=== PATIENT | female | born 1990 | race Caucasian/White ===

== ENCOUNTER 2024-09-29 10:46 | Outpatient (AMB) | payer OTHER, SELFPAY ==
--- NOTE | 2024-09-29 10:49 | A.OFFPC_ITS ---
Vital Signs 09/29/24 10:54 09/29/24 11:19 09/29/24 11:23 Height 5 ft 6 in Weight 178 lb BMI 28.7 BP 142/78 H 128/76 Blood Pressure Location Rt brachial Rt brachial Position Sitting Sitting Respiration 13 Pulse 103 H 105 H Pulse Source Pulse Oximeter Auscultation Temp 96.9 F Temp Source Oral Pulse Oximetry (%) 99 Oxygen Delivery Method Room Air Intake Visit Reasons: TYPIST // Requesting a PE Intake Note: New patient to establish care and cpe. Twister Doffer Required: No Allergies No Known Allergies Allergy (Verified 09/29/24 11:10) Medication List - Last Reconciled 09/29/24 by GALILEA Carranza No Known Home Meds Tobacco use date assessed: 09/29/24 Dental Screening Dental Screen Date: 09/29/24 Did you have a dental visit in the last 12 months?: Yes Did you have a dental problem in the last 6 months where you did not have access to dental care?: No Was dental information given to patient?: Patient has dentist HPI HPI Comments History of Present Illness Details ARYAN 34 y/o F with no significant medical hx. 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 Some days worse than others. No pattern. Sx are persistent, does not ever go away. But can get worse. Activity and food do not seem to change her sx. No alleviating factors. She is having palpitations. Every now and then. Feels like breathing is good. Does not smoke Denies chance of Denies surgery or travel prior to onset. Not taking any meds. Denies asthma, acid reflux, cough, n/v. Review of Systems - Cardiovascular: Reports palpitations, denies chest pain. - Gastrointestinal: Denies nausea and vo miting. - Respiratory: Denies asthma symptoms. - Psychological: Denies depression or an xiety. - Musculoskeletal: Denies back pain, den ies leg swelling. Physical Exam General: Well developed, well nourished, in no acute distress. Appears stated age. Head: Normocephalic, atraumatic. Eyes: Pupils are equal, round and reactive to light and accommodation. Lungs: Clear to auscultation bilaterally. No rales, rhonchi or wheeze noted. Good air flow in all salvador. Heart: Tachycardia, Regular rhythm. No murmurs, click, rubs or gallops are noted. EKG done. Musculoskeletal: Joints are nontender, without swelling, redness, or effusions. Pulses: Peripheral pulses are equal and palpable bilaterally. Extremities: No clubbing, cyanosis nor edema is noted. Psych: Mood and affect appropriate. Depression screening negative. Diagnostic results EKG done Discussion Notes We discussed performing an ECG, which showed a fast heart rate, and the benefits of further cardiac evaluation, including possible stress testing and lab work to rule out thyroid disease or other abnormalities. The timeline for test results was mentioned, and the need for further examinations and follow-up was agreed upon. I advised the patient to use our patient portal for lab results, with a follow-up planned in four weeks to review all findings, start new medications if necessary, and consider pressure management. I made sure the patient understood the testing procedures and the rationale behind them. Return precautions and further guidance on contact for results were addressed. Assessment and Plan 1. Palpitations/Chest pressure/Tachycard ia - Labs, ekg, stress test, CXR RTO 4 weeks to discuss results, sooner PRN Patient Instructions - Please follow up through the patient p ortal to check lab results. - Expect contact regarding the stress te st schedule, anticipated in three weeks. - Avoid stress and try relaxation techni ques for potential anxiety-related symptoms. - Return to the clinic if symptoms worse n or new symptoms arise. Consent Patient was informed and verbally consented to the use of an ambient scribe for clinic note documentation during this visit. Total time spent caring for the patient today was 45 minutes. This includes time spent before the visit reviewing the chart, time spent during the visit, and time spent after the visit on documentation, reviewing laboratory results, diagnostic imaging, medications, performing a medically necessary evaluation, counseling on diagnoses, care coordination, ordering appropriate tests, ordering appropriate medications, review of tests performed by other providers, reporting test results with the patient, communication with other healthcare providers. 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 1. Little interest or pleasure in doing things: not at all 2. Feeling down, depressed, or hopeless: not at all 3. Trouble falling or staying asleep, or sleeping too much: not at all 4. Feeling tired or having little energy: not at all 5. Poor appetite or overeating: not at all 6. Feeling bad about yourself - or that you are a failure or have let yourself or your family down: not at all 7. Trouble concentrating on things, such as reading the newspaper or watching television: not at all 8. Moving or speaking so slowly that other people could have noticed. Or the opposite - being so fidgety or restless that you have been moving around a lot more than usual: not at all 9. Thoughts that you would be better off or of hurting yourself in some way: not at all Total score: 0 Depression Screening Interpretation: Negative Depression Screening Done: Yes 57234 - PHQ-9 Billing: Yes Source: Developed by Drs. Adolfo Shaw, Elizabeth Torres, Josue Fuentes and colleagues, with an educational joshua from [employer]. Thrive Questionnaire Date Thrive assessed: 09/29/24 I am a: Patient What is your living situation today?: I have a steady place to live Within the past 12 months, did the food you bought not last and you didn't have the money to get more?: Never true Within the past 12 months, did you worry whether your food would run out before you got money to buy more?: Never true Do you have trouble paying for medicines?: No Do you have trouble getting transportation to medical appointments?: No Do you have trouble paying your heating and electricity bill?: No Do you have trouble taking care of your child, family member or friend?: No Do you have trouble with day-to-day activities such as bathing, preparing meals, shopping, managing finances, etc.?: No Are you currently unemployed and looking for a job?: No Are you interested in more education?: No Please select the resources that you would like help with: None Currently or been in a relationship where the following occur: No concerns reported THRIVE Score: 0 AUDIT C Alcohol Use Questionnaire (AUDIT-C) 1. How often do you have a drink containing alcohol?: Monthly or less 2. How many drinks containing alcohol do you have on a typical day when you are drinking?: 3 or 4 3. How often do you have six or more drinks on one occasion?: Never Total Score: 2 Score Reviewed/Action Taken: Yes LOS-7 AMB Questionnaire LOS-7 Date LOS - 7 assessed: 09/29/24 Feeling nervous, anxious, or on edge: 0 = Not at all Not being able to stop or control worryin = Not at all Worrying too much about different things: 1 = Several days Trouble relaxin = Not at all Being so restless that it is hard to sit still: 0 = Not at all Becoming easily annoyed or irritable: 0 = Not at all Feeling afraid as if something awful might happen: 0 = Not at all Total LOS-7 score (0-4 normal; 5-9 mild; 10-14 moderate; 15-21 severe): 1 Source: Developed by Drs. Adolfo Shaw, Elizabeth Torres, Josue Fuentes and colleagues, with an educational joshua from [employer]. LOS-7 Assessment Billing LOS-7 Assessment Tool: LOS-7 Assessment 92993 Physical exam (Primary Care) Vital Signs: Last Vital Signs Temp 96.9 F 09/29/24 10:54 Pulse 105 H 09/29/24 11:23 Resp 13 09/29/24 10:54 BP 128/76 09/29/24 11:19 Pulse Ox 99 09/29/24 10:54 Oxygen Delivery Method Room Air 09/29/24 10:54 BMI result Body Mass Index 28.7 Tobacco/Smoking Status: Tobacco use Status Tobacco use date assessed 09/29/24 09/29/24 10:57 Patient Tobacco Use Status Never used Tobacco 09/29/24 10:57 e-Cigarette/Vaping Use Never Used 09/29/24 10:57 PHQ-9: PHQ-9 Score PHQ-9: Total score 0 09/29/24 11:19 Depression Screening Interpretation: Negative Thrive Assessment: Date of Thrive Assessment Date Thrive assessed 09/29/24 09/29/24 10:57 Currently or been in a relationship where the following occur: No concerns reported Office Procedures EKG 34285-Aokucmjkadkjayojt, Complete Coding Level of Care Code New Pt Level 4 (13644) Complex EM visit Add On G2211 Diagnoses Encounter to establish care Z76.89 Palpitations R00.2 Chest pressure R07.89 CPT Codes EKG - CPT: 15784-Najbuffvqknelfasi, Complete ([id number]) Additional Codes LOS-7 Assessment Billing - LOS-7 Assessment Tool: LOS-7 Assessment 17414 ([id number]) PHQ-9 - 43370 - PHQ-9 Billing: Yes ([id number]) Assessment & Plan Assessment & Plan (1) Encounter to establish care: Code(s): Z76.89 - Persons encountering health services in other specified circumstances (2) Palpitations: Code(s): R00.2 - Palpitations Category: Medical (3) Chest pressure: Code(s): R07.89 - Other chest pain Category: Medical Plan . Orders: Orders Complete Blood Count no Diff Today R00.2 - Palpitations IRON PROFILE Today R00.2 - Palpitations Lipid Panel Today R00.2 - Palpitations Comprehensive Met. Panel Today R00.2 - Palpitations Ferritin Today R00.2 - Palpitations Hemoglobin A1c Today R00.2 - Palpitations TSH reflex Free T4 Today R00.2 - Palpitations Vitamin B12 and Folate Today R00.2 - Palpitations Magnesium Today R00.2 - Palpitations Phosphorus Today R00.2 - Palpitations XR chest 2V Today R00.2 - Palpitations CA stress test Today R00.2 - Palpitations, R07.89 - Other chest pain NM cardiolite stress test Today R00.2 - Palpitations, R07.89 - Other chest pain Erythrocyte Sedimentation Rate Today R00.2 - Palpitations, R07.89 - Other chest pain CRP High Sensitivity Today R00.2 - Palpitations, R07.89 - Other chest pain Patient Instructions: Walk-In Care (Urgent Care): We Make it Easy Walk-in for urgent medical issues such as: ? Seasonal Allergies ? Insect Bites ? Cough ? Diarrhea ? Acute Asthma Attacks ? Back, Knee or Joint Pain ? Ear Infection ? Fever without a Rash ? Headaches ? Nausea ? [place] [facility], Rash or Skin Irritation ? Sore Throat ? Sports Physicals ? Vomiting Most insurances are accepted. Patients do not need to be part of the [facility] to seek care at the walk-in clinic. Locations [facility] [place] [address] ? [phone] [facility] Walk-In Care in [place] provides services to ages 18 and over. Open Friday-Friday: 8 a.m. to 5 p.m. and Friday: 9 a.m. to 3 p.m.* *Hours may vary due to staffing availability. To confirm Walk-In Care hours in [place], please call [phone]. [address] [place] [address] ? [phone] [facility] Walk-In Care in [place] provides services to ages 12 and over. Open Friday-Friday: 8 a.m. to 5 p.m. Hours may vary due to staffing availability. To confirm Walk-In Care hours in [place], please call [phone]. LABORATORY SERVICES: [facility] Lab ? Primary Location [address] [place] [address] Friday through Friday 6:00 AM ? 5:00 PM Friday 7:00 AM ? 11:00 AM* [phone] [facility] Lab is centrally located near the front entrance of the [facility] for easy outpatient access. Convenient parking is provided for outpatients. *Hours may vary due to staffing availability. To confirm Laboratory hours for any location, please call [phone]. Offsite Location For your convenience, we offer offsite laboratory draw stations at the following locations: [address] [facility], [place] ? [facility] [address] [facility], [address], [place] Friday through Friday 7:30 AM ? 1:00 PM* [phone] *Hours may vary due to staffing availability. To confirm Laboratory hours for any location, please call [phone]. [place] ? [facility] [address] [facility] Friday through Friday 6:00 AM ? 3:30 PM* Friday 6:30 AM ? 3 PM* [phone] *Hours may vary due to staffing availability. To confirm Laboratory hours for any location, please call [phone] [place] [address] Friday through Friday 7:30 AM ? 4:00 PM* [phone] *Hours may vary due to staffing availability. To confirm Laboratory hours for any location, please call [phone] [place] [address] Friday through 9:00 AM ? 4:00 PM* *Hours may vary due to staffing availability. To confirm Laboratory hours for any location, please call [phone]. Appointments are not necessary. Walk-ins are welcome. Like all the departments throughout the [facility], our Lab undergoes frequent reviews to ensure the quality and accuracy of test results, and our staff takes special pride in its status as a nationally accredited facility. Patient Portal: ONE PATIENT. ONE RECORD. BETTER CARE. [facility] has a fully integrated, cutting- edge mobile electronic health information system that has revolutionized the way we care for our patients and manage our organization. This system improves communication and coordination enabling us to provide safe, higher-quality care, and an overall positive experience for staff and patients. Our first priority, as always, is to deliver the highest quality care possible. The system is running in the background supporting that priority. This portal is for all [facility] services and practices. If you are experiencing any technical difficulties with enrolling or logging into the Patient Portal please complete the [facility] Patient Portal Technical Support Form. [facility] now offers a new secure on-line interactive tool for patients to review their health information ? ?Patient Portal. This interactive web portal will enable patients and their families to take an active role in their care by providing easy, secure access to their health information via the internet. The Patient Portal provides patients with instant access to their health information, including laboratory results, medications, allergies, demographic information, visit history, and more. In addition to managing their own care, parents and health care proxies with authorized consent will appreciate the ability to access the records of those individuals for whom they provide care. Please note: if you wish to gain access (Proxy) to another patient?s portal, you will be required to come to the Medical Records Department in person at [facility]. Both the patient giving proxy access and the proxy will need to provide photo identification and complete the appropriate authorization. The Patient Portal also allows track their appointments online. The [facility] Patient Portal also saves patients time by allowing them to submit updates to their demographic and contact information prior to their visits. Portal email notifications will also alert patients to any new activity on their portal, such as test results and new appointments. In order to initially enroll in the [facility] Patient Portal, you will need to enter some required information including the following: * your [facility] Medical Record number * your personal home email address * name * date of Please note: In order to enroll in the [facility] Patient Portal, we need to have your email address on file in your electronic medical record. ?The email address needs to be specific for one person (yourself) in order for your Portal enrollment to be successful. ?You can update your email address in person with our Registration staff when you are registering for a hospital visit. ?Otherwise, you will need to come to the Health Information Management (Medical Records) Department at [facility]. ?We are open from Friday ? Friday from 7:30 a.m. ? 4:30 p.m. ?You will be required to present a photo id. Once you have successfully enrolled in the Patient Portal, you will receive a one-time user id and password for the Portal, sent to your email address. ?This will allow you to log into the Patient Portal within 99 hrs and reset your own logon id and password, and define personal security questions. ?Once your permanent login and password have been set, you can log into the [facility] Patient Portal at any time via the blue button above or from the Portal Logon button on any page of the [facility] website. [facility] encourage all of our patients to enroll in Patient Portal as it presents a valuable opportunity for patients and their families to actively participate in their care and stay healthy Welcome to [facility]. ?We look forward to working with you.
[2024-09-29 10:54] VITALS: BP 142/78; PULSE 103; RESP 13; TEMP 36.1; O2SAT 99; BMI 28.7
[2024-09-29 11:19] VITALS: BP 128/76
[2024-09-29 11:23] VITALS: PULSE 105
--- OUTSIDE RECORDS SUMMARY | 2024-09-29 12:23 | XMS_ITS | Clinical Summary ---
Author Organization [facility] ity Address [address] [place] [address] Care Team Providers Care Well Head Pumper Name Role Phone Unavailable Primary Care Provider Unavailabl e Social History Tobacco Use Types Packs/Day Years Used Date Smoking Tobacco: Never Assessed Comments Unknown Sex and Gender Information Value Date Recorded Sex Assigned at Not on file Legal Sex Female 9:19 PM EST Gender Identity Not on file Sexual Orientation Not on file Plan of Treatment Health Maintenance Due Date Last Done Comments DTaP,Tdap,and Td Vaccines (1 - Tdap) 2009 Hepatitis B Vaccines (1 of 3 - 19+ 3-dose series) 2009 Cervical Cancer Screening: P ap Smear 07/25/2011 COVID-19 Vaccine ( - 2023-2 5 season) 2023 Influenza Vaccine (Season Ended) 2024 HIB Vaccines Aged Out No longer eligi ble based on patient's age to complete this topic HPV Vaccines Aged Out No longer eligi ble based on patient's age to complete this topic Hepatitis A Vaccines Aged Out No long er eligible based on patient's age to complete this topic IPV Vaccines Aged Out No longer eligi ble based on patient's age to complete this topic MMR Vaccines Aged Out No longer eligi ble based on patient's age to complete this topic Meningococcal ACWY Vaccine Aged Out N o longer eligible based on patient's age to complete this topic Meningococcal B Vaccine Aged Out No l onger eligible based on patient's age to complete this topic Pneumococcal Vaccine: Pediat rics (0 to 5 Years) and At-Risk Patients (6 to 64 Years) Aged Out No longer eligible b ased on patient's age to complete this topic RSV Immunization Patients Un darren 20 months Aged Out No longer eligible b ased on patient's age to complete this topic Varicella Vaccines Aged Out No longer eligible based on patient's age to complete this topic
== END 2024-09-29 11:50 | disposition home or self-care (01) ==
LOC: HO.HMCFM 10:47
PROVIDERS: PCP Nurse Practitioner Family; Visit Provider Nurse Practitioner Family
DX: Z76.89 Persons encountering health services in other specified circumstances (principal); R00.2 Palpitations; R07.89 Other chest pain

== ENCOUNTER 2024-09-29 11:42 | Outpatient (REF) | payer OTHER, SELFPAY ==
[2024-09-29 14:29] LABS: Hematocrit 40.3 % (37.0-47.0); Mean Corpuscular HGB Conc 32.3 g/dl (31.0-35.0); Mean Corpuscular Hemoglobin 27.4 pg (27.0-33.0); Mean Platelet Volume 10.1 fL (9.4-12.3); Platelet Count 132 X10*3/uL (160-400); Red Blood Count 4.74 X10*6/uL (4.20-5.50); Red Cell Distribution Width 12.4 % (11.0-16.0)
[2024-09-29 14:33] LABS: Estimated Average Glucose 100 mg/dL; Hemoglobin A1c % 5.1 % (<6.0); Total Hemoglobin (HGBA1C) 3521.2077 umol/L
[2024-09-29 14:47] LABS: Alanine Aminotransferase < 6 U/L (0-31); Albumin Level 4.5 g/dL (3.5-5.0); Alkaline Phosphatase 56 U/L (39-117); Anion Gap 14 (12-20); Aspartate Amino Transferase 19 U/L (5-31); Bilirubin Total 0.3 mg/dL (0.0-1.0); Blood Urea Nitrogen 13 mg/dL (9-16); Calcium 9.9 mg/dL (8.4-10.2); Carbon Dioxide 24 mmol/L (22-29); Chloride 107 mmol/L (96-108); Cholesterol 190 mg/dL (<200); Estimated Glomerular Filt Rate > 60; Glucose Random 110 mg/dL (60-115); HDL Cholesterol 55 mg/dL (>40); Iron 73 mcg/dL (30-160); LDL Cholesterol Calculated 121 mg/dL (<100); Magnesium 1.9 mg/dL (1.6-2.6); Percent Iron Saturation 27 % (15-50); Phosphorus 3.1 mg/dL (2.7-4.5); Potassium 3.6 mmol/L (3.3-5.1); Sodium 141 mmol/L (135-145); Total Iron Binding Capacity 269 mcg/dL (228-428); Total Protein 7.3 g/dL (6.5-8.0); Triglycerides 72 mg/dL (<150); Unsaturated Iron Binding 196 ug/dL
[2024-09-29 15:04] LABS: Ferritin 38 ng/mL (10-122); TSH reflex Free T4 2.13 uIU/mL (0.32-4.0)
[2024-09-29 15:07] LABS: Erythrocyte Sedimentation Rate 12 MM/HR (0-20)
[2024-09-29 15:10] LABS: Vitamin B12 610 pg/mL (200-900)
[2024-09-30 07:43] LABS: CRP High Sensitivity 7.4 mg/L
== END 2024-09-29 11:43 | disposition home or self-care (01) ==
LOC: HO.WFDLDS 11:42
PROVIDERS: Visit Provider Nurse Practitioner Family
DX: Z76.89 Persons encountering health services in other specified circumstances (principal); R00.2 Palpitations; R07.89 Other chest pain; Z13.1 Encounter for screening for diabetes mellitus
CPT/HCPCS: 36415; 80053; 80061; 82607; 82728; 82746; 83036; 83540; 83735; 84100; 84443; 85027; 85652; 86141; 93005; 96127

== ENCOUNTER 2024-10-01 07:46 | Outpatient (REF) | payer OTHER, SELFPAY ==
--- NOTE | ~2024-10-01 | XR_ITS ---
EXAMINATION: XR CHEST CLINICAL INFORMATION: R00.2 - Palpitations COMPARISON: None available. TECHNIQUE: 2 views of the chest were obtained. FINDINGS: The cardiac, hilar, and mediastinal contours are normal. The lungs are clear bilaterally. There is no pneumothorax or pleural effusion. There is no focal osseous or soft tissue abnormality. XR/XR chest 2V IMPRESSION: Normal chest. Electronically signed by: Av Shetty MD 10/01/2024 08:11 AM EDT
== END 2024-10-01 07:47 | disposition home or self-care (01) ==
LOC: HO.XRAY 07:46
PROVIDERS: Visit Provider Nurse Practitioner Family
DX: R00.2 Palpitations (principal)
CPT/HCPCS: 71046

== ENCOUNTER → 2024-10-01 07:51 | Outpatient (BNV) | payer OTHER, SELFPAY | PROVIDERS: Visit Provider Radiology Diagnostic Radiology | DX: R00.2 Palpitations (principal) | CPT/HCPCS: 71046 ==

== ENCOUNTER 2024-10-02 20:14 | Emergency (ER) | payer OTHER, SELFPAY ==
--- NOTE | 2024-10-02 20:17 | ECG_ITS ---
Test Reason : CP Blood Pressure : */* mmHG Vent. Rate : 81 BPM Atrial Rate : 81 BPM P-R Int : 140 ms QRS Dur : 86 ms QT Int : 366 ms P-R-T Axes : 57 40 -11 degrees QTcB Int : 425 ms Normal sinus rhythm with sinus arrhythmia Normal ECG No previous ECGs available Referred By: Montse Davidson Electronically Signed By: Damon Blas
[2024-10-02 20:23] VITALS: BP 154/83; PULSE 80; RESP 22; TEMP 36.8; O2SAT 100; BMI 28.2
--- NOTE | 2024-10-02 20:26 | ED_ITS ---
HPI - Chest Pain General Chief Complaint: Chest Pain Stated Complaint: chest pain/lighted headed wave earlier Time Seen by Provider: 10/02/24 21:17 Source: patient Mode of arrival: ambulatory Limitations: no limitations History of Present Illness ED Provider: Jennie Denis PA-C HPI narrative: Patient is a 34 year old assigned female at with no reported medical history presenting to the emergency department today with chest pain and palpitations. Patient states that since December of 2023 she has been having episodes of chest tightness with palpations. Patient states that just this month she was able to get into a new primary care provider to begin an outpatient work up for this issue. Tonight she was at dinner when she had a major episode of the tightness and palpitations. Patient denies any dizziness, lightheadedness, abdominal pain, nausea, vomiting, fever, chills, blurry vision, double vision, loss of vision, difficulty breathing, shortness of breath, back pain, night sweats, pain with urination, increased urinary frequency, increased urinary urgency, blood in her urine or stool, syncope or a near syncopal episode, recent trauma or falls, bowel incontinence, bladder incontinence, or any other complaints at this time. Related Data Home Medications ?Medication ?Instructions ?Recorded ?Confirmed No Known Home Meds 09/29/24 09/29/24 Allergies Allergy/AdvReac Type Severity Reaction Status Date / Time No Known Allergies Allergy Verified 10/02/24 20:32 Review of Systems 2 Constitutional: Constitutional: Reports no additional constitutional complaints, Denies chills, Denies fever(s) and Denies night sweats Eyes: Eyes: Reports no additional eye complaints, Denies blurry vision, Denies change in vision, Denies diplopia, Denies eye discharge, Denies loss of vision and Denies eye pain ENT: Denies dizziness Cardiovascular: Cardiovascular: Reports no additional cardiovascular complaints, Reports chest pain, Denies lightheadedness, Denies Loss of Consciousness, Reports palpitations and Denies dyspnea Respiratory: Respiratory: Reports no additional respiratory complaints and Denies dyspnea Gastrointestinal: Gastrointestinal: Reports no additional gastrointestinal complaints, Denies abdominal pain, Denies melena, Denies hematochezia, Denies change in bowel habits and Denies change in stool character Genitourinary: Genitourinary: Denies hematuria, Denies urinary frequency, Denies dysuria, Denies urinary incontinence, Denies urinary hesitancy and Denies urinary urgency Musculoskeletal: Musculoskeletal: Reports no additional musculoskeletal complaints, Denies numbness and Denies tingling Neurologic: Denies dizziness, Denies loss of vision, Denies numbness and Denies tingling Psychiatric: Psychiatric: Reports no additional psychiatric complaints Endocrine: Endocrine: Reports no additional endocrine complaints and Reports palpitations Hematologic/Lymphatic: Hematologic/Lymphatic: Reports no additional hematologic/lymphatic complaints Allergic/Immunologic: Allergic/Immunologic: Reports no additional allergic/immunologic complaints PMFSH Past Medical History Attestation statement: The following information was validated with the patient. Source: old records reviewed and nursing notes reviewed Medical History No pertinent past medical history Surgical History Bone marrow donor Family History Family History Sister Asthma Diabetes Brother Asthma Diabetes Mother High cholesterol Paternal Grandfather Diabetes Maternal Grandfather Cardiovascular disease Father Pancreas cancer Social History Social History Household Members: Spouse and Children Housing: House Are you a primary direct care staffer to a significant other at home: Yes Do you presently have visiting nurse or other home services: No Alcohol intake: current Alcohol intake frequency: a few times a month Patient Tobacco Use Status: Never used Tobacco e-Cigarette/Vaping Use: Never Used Second Hand Smoke Exposure: No Advance Directives: No Advance Directives Information Provided: No Current occupational status: employed 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 Cognitive needs: No Hearing needs: No Vision needs: Yes (wear glasses) Physical Exam 2 Vital Signs: Vital Signs: Last Vital Signs Temp 98.0 F 10/02/24 22:52 Pulse 98 10/02/24 22:52 Resp 14 10/02/24 22:52 BP 121/57 L 10/02/24 22:52 Pulse Ox 100 10/02/24 22:52 O2 Del Method Room Air 10/02/24 22:52 BMI result Body Mass Index 28.2 Const: General: cooperative, no acute distress, alert and awake Nutritional Appearance: well nourished Orientation/consciousness: patient oriented x3 HEENT: Head: Yes normal to inspection and Yes atraumatic Ears: hearing grossly normal bilaterally and external ears normal General nose exam: Normal external nose present, no nasal discharge noted and no epistaxis Face and sinus: Yes normal facial exam, No abrasion and No laceration Mouth: Normal oral and palatal mucosa present, no drooling and no muffled voice Eyes: General: appearance normal, both eyes and all related structures P eriorbital: periorbital findings normal Eyelids: Yes eyelids normal C onjunctivae: conjunctivae normal Pupils: Equal, round and reactive pupils present EOM: EOMs intact bilaterally Neck: Neck: Yes normal visual inspection, Yes full ROM and Yes no lymphadenopathy Resp: Effort & Inspection: normal respiratory effort and able to speak in complete sentences Neuro: General: patient oriented x3, moves all extremities and CN's II-XI intact bilaterally Cranial nerves: Yes Equal, round and reactive pupils present Cognition (Neuro): normal cognition Extrem: General: Yes normal to inspection, Yes full ROM and Yes capillary refill normal Psych: Appearance: grossly normal Mental Status: mental status grossly normal Affect: normal affect Attitude: cooperative Thought process: N ormal thought process present Thought content: Normal thought content present Insight: Good insight present (Psych) Course Course Course Narrative: This is an RME: Additional HPI, ROS, PE not included below will be deferred to primary provider. RME assessment and note performed by: Montse Davidson PA-C This is a [id number]-female who presents to the ER with complaints of chest pain. Reports while she was at dinner this evening she felt an unusual feeling overcome her. She states that she has had chest pain and palpitations. Recently was establishing primary care where she mentioned palpitations and chest pain. Labs were performed, she did have an elevated CRP, normal chest x- ray. Also was going to have a stress test performed, she is awaiting this appointment. No known cardiac history. Patient reports that her grandfather has a history of CHF. No recent travel, surgery, or hospitalizations. Plan: EKG, labs, will defer chest x-ray she just had one several days ago. Medical Decision Making Medical Decision Making MDM Narrative: Patient is a 34 year old assigned female at with no reported medical history presenting to the emergency department today with chest pain and palpitations. Patient's physical exam was unremarkable. Patient's blood work was unremarkable. Patient's EKG was unremarkable. I explained my physical exam findings as well as all test results to the patient. I answered all questions asked by the patient. I stressed the importance of the patient taking her medication as directed (either prescribed or as the over the counter packaging recommends). I stressed the importance of the patient following up with her primary care provider and a beef grader. I stressed the importance of the patient returning to the emergency department immediately if her symptoms were to worsen or if she were to develop any dizziness, shortness of breath, difficulty breathing, chest pain, blurry vision, loss of vision, nausea, vomiting, abdominal pain, fever, chills, back pain, or any other complaints. Patient verbalized agreement and understanding with this treatment plan and discharge. Differential Diagnosis Differential Diagnoses: The differential diagnosis associated with the presentation includes Palpitations Chest pain Atypical chest pain NSTEMI STEMI Admission/Observation Consideration of admission/observation: Escalation of care including admission/observation considered Patient would have been admitted to the hospital had her work up had any findings where hospital admission was appropriate and her clinical presentation warranted hospital admission. Lab Data [facility] Lab Attestation statement: I reviewed the patient's lab results. My interpretation of these results are in the [facility] Rationale portion of this note. 10/02/24 20:42 10/02/24 20:42 Labs: Lab Results 10/02/24 10/02/24 10/02/24 Range/Units 20:42 20:43 22:06 WBC 10.1 (4.8-10.8) X10*3/uL RBC 4.46 (4.20-5.50) X10*6/uL Hgb 12.5 (12.0-16.0) g/dl Hct 36.8 L (37.0-47.0) % MCV 82.5 (80.0-98.0) fL MCH 28.0 (27.0-33.0) pg MCHC 34.0 (31.0-35.0) g/dl RDW 12.2 (11.0-16.0) % Plt Count 242 D (160-400) X10*3/uL MPV 8.0 L (9.4-12.3) fL Immature Gran % (Auto) 0.3 (0.0-0.4) % Neut % (Auto) 81.2 H (45-73) % Lymph % (Auto) 13.6 L (20-40) % Carson % (Auto) 4.5 (2-11) % Eos % (Auto) 0.0 (0-4) % Baso % (Auto) 0.4 (0-2) % Lymph # (Auto) 1.4 (1.2-4.9) X10*3/uL Carson # (Auto) 0.5 (0.1-1.2) X10*3/uL Eos # (Auto) 0.0 (0.0-0.4) X10*3/uL Baso # (Auto) 0.0 (0.0-0.2) X10*3/uL Abs Immat Gran (auto) 0.03 (0.00-0.03) X10*3/uL Absolute Neuts (auto) 8.2 (2.0-8.3) x10*3/uL Absolute Nucleated RBC 0.000 (0.0-0.012) X10*3/uL Nucleated RBC % (auto) 0.0 (0.0-0.2) /100WBC Sodium 137 (135-145) mmol/L Potassium 3.5 (3.3-5.1) mmol/L Chloride 106 (96-108) mmol/L Carbon Dioxide 25 (22-29) mmol/L Anion Gap 10 L (12-20) BUN 12 (9-16) mg/dL Creatinine 0.85 (0.5-1.4) mg/dL Estim Creat Clear Calc 99.0 Estimated GFR > 60 Random Glucose 148 H (60-115) mg/dL Calcium 9.4 (8.4-10.2) mg/dL Magnesium 1.8 (1.6-2.6) mg/dL Total Bilirubin 0.3 (0.0-1.0) mg/dL Direct Bilirubin 0.1 (0.0-0.5) mg/dL AST 17 (5-31) U/L ALT 6 (0-31) U/L Alkaline Phosphatase 57 (39-117) U/L Troponin I High Sens < 2.7 < 2.7 (<3.5-17.0) ng/L Total Protein 7.1 (6.5-8.0) g/dL Albumin 4.6 (3.5-5.0) g/dL Lipase 25 (8-78) U/L TSH 2.39 (0.32-4.0) uIU/mL Beta HCG, Quant < 2 mIU/mL Independent Interpretation I performed an independent interpretation of an: EKG Interpretation: I independently interpreted this EKG and am in agreement with the below findings: Vent. Rate: 81 BPM Atrial Rate: 81 BPM P-R Int: 140 ms QRS Dur: 86 ms QT Int: 366 ms P-R-T Axe : 57 40 -11 degrees QTcB Int: 425 ms Normal sinus rhythm with sinus arrhythmia Normal ECG No previous ECGs available DD/ 17 Discharge Plan Discharge Clinical Impression: Palpitations, Atypical chest pain Patient Disposition: Home, Self-Care Instructions: Chest Pain (DC), Heart Palpitations (DC) Additional Instructions: Follow up with your primary care provider and a beef grader. Return to the emergency department immediately if your symptoms worsen or if you develop any numbness, tingling, dizziness, shortness of breath, difficulty breathing, chest pain, blurry vision, loss of vision, nausea, vomiting, abdominal pain, fever, chills, back pain, or any other complaints. Please see the information below about our Patient Portal. If you are not yet enrolled in the [facility] Patient Portal, you will receive an enrollment email invitation following your visit to any [facility] care setting. You may also self-enroll in the Patient Portal by visiting our website: [email or web address] The following information is required to access the Patient Portal: - Your [facility] Medical Record Number - Your personal home email address (must match what is in your electronic medical record, Registration staff can assist with this) - Name - Date of Capabilities of the Patient Portal: - Message some providers - View upcoming appointments - Access your health summary, medical history, and visit history - View current conditions and allergies - View procedure and lab results - View your medications, including guidelines, side effects, and precautions - Complete pre-appointment questionnaires requested by your provider - Ready summary reports of your office visits and procedures To access the Patient Portal Mobile Danielle, follow these directions: - Search [employer] in the Danielle Store or Google [employer] Store - Download the Danielle - Search for [facility] - Enter your login/password Prescriptions: No Action No Known Home Meds Referrals: [facility] [Provider Group] Referral Note: Call to establish and follow up with a beef grader. Rhonda Cash, CORROSION CONTROL ENGINEER-BC [Primary Care Provider, Internal Medicine] Interventions: ED Discharge Assessment Last Done: 10/02/24 22:52 Discharge Date/Time: 10/02/24 22:53 Print Language: Ukrainian
[2024-10-02 20:47] LABS: Basophils Percent Auto 0.4 % (0-2); Hematocrit 36.8 % (37.0-47.0); Hemoglobin 12.5 g/dl (12.0-16.0); Imm Gran Abs Auto 0.03 X10*3/uL (0.00-0.03); Imm Gran Pct Auto 0.3 % (0.0-0.4); Lymphocytes Absolute Auto 1.4 X10*3/uL (1.2-4.9); Lymphocytes Percent Auto 13.6 % (20-40); MANUAL DIFF FLAG NO; Mean Corpuscular Volume 82.5 fL (80.0-98.0); Monocytes Absolute Auto 0.5 X10*3/uL (0.1-1.2); Monocytes Percent Auto 4.5 % (2-11); Neutrophils Absolute Auto 8.2 x10*3/uL (2.0-8.3); Neutrophils Percent Auto 81.2 % (45-73); Platelet Count 242 X10*3/uL (160-400); Red Blood Count 4.46 X10*6/uL (4.20-5.50); Red Cell Distribution Width 12.2 % (11.0-16.0); White Blood Count 10.1 X10*3/uL (4.8-10.8)
[2024-10-02 21:14] LABS: Troponin-I High Sensitivity < 2.7 ng/L (<3.5-17.0)
[2024-10-02 21:14] LABS: Alanine Aminotransferase 6 U/L (0-31); Albumin Level 4.6 g/dL (3.5-5.0); Alkaline Phosphatase 57 U/L (39-117); Anion Gap 10 (12-20); Aspartate Amino Transferase 17 U/L (5-31); Bilirubin Direct 0.1 mg/dL (0.0-0.5); Bilirubin Total 0.3 mg/dL (0.0-1.0); Blood Urea Nitrogen 12 mg/dL (9-16); Calcium 9.4 mg/dL (8.4-10.2); Carbon Dioxide 25 mmol/L (22-29); Chloride 106 mmol/L (96-108); Estimated Glomerular Filt Rate > 60; Glucose Random 148 mg/dL (60-115); HCG Quantitative < 2 mIU/mL; Lipase 25 U/L (8-78); Magnesium 1.8 mg/dL (1.6-2.6); Potassium 3.5 mmol/L (3.3-5.1); Sodium 137 mmol/L (135-145); Total Protein 7.1 g/dL (6.5-8.0)
[2024-10-02 21:26] LABS: TSH reflex Free T4 2.39 uIU/mL (0.32-4.0)
[2024-10-02 22:09] VITALS: BP 121/57; PULSE 98; RESP 14; O2SAT 100
[2024-10-02 22:32] LABS: Troponin-I High Sensitivity < 2.7 ng/L (<3.5-17.0)
[2024-10-02 22:52] VITALS: BP 121/57; PULSE 98; RESP 14; TEMP 36.7; O2SAT 100
== END 2024-10-02 22:53 | disposition home or self-care (01) ==
PROVIDERS: Physician Assistant Medical; Emergency Provider Emergency Medicine Emergency Medical Services; PCP Nurse Practitioner Family
DX: R07.89 Other chest pain (principal); R00.2 Palpitations
CPT/HCPCS: 36415; 80048; 80076; 83690; 83735; 84443; 84484; 84702; 85025; 93005; 99283; 99284

== ENCOUNTER → 2024-10-02 20:17 | Outpatient (BNV) | payer OTHER, SELFPAY | PROVIDERS: Emergency Provider Emergency Medicine Emergency Medical Services; PCP Nurse Practitioner Family; Visit Provider Internal Medicine Cardiovascular Disease | DX: R07.9 Chest pain, unspecified (principal) | CPT/HCPCS: 93010 ==

== ENCOUNTER → 2024-11-24 07:44 | Outpatient (REF) | payer OTHER, SELFPAY ==
--- NOTE | ~2024-11-24 | NM_ITS ---
EXERCISE MYOCARDIAL PERFUSION STUDY INDICATION: Chest pain to evaluate for myocardial ischemia TECHNIQUE: The patient was brought in for an exercise perfusion study on 11/24/2024. Patient performed exercise as per Rubens protocol and was injected 25 mCi of sestamibi once target heart rate was achieved. Images were obtained using the SPECT gamma camera interlaced with the gating device. Images were obtained in supine position. Resting perfusion study was performed on 11/29/2024. Patient was administered 25 mCi of sestamibi intravenously at rest. Images were then obtained in supine position. Images obtained without without CT attenuation. Total DLP 63 mGy-cm Images were processed with the software and compared side to side in short axis, horizontal long axis and vertical long axis views. FINDINGS: Raw images were reviewed The stress perfusion study showed nonattenuated show mildly reduced uptake in the basal inferior and basal inferoseptal wall of the LV myocardium. Attenuated corrected images show minimally reduced uptake in the apex as well as basal septum of the LV myocardium.. The gated study shows normal LV systolic function with calculated LVEF of greater than 70%. LV cavity is normal in size. The gated study shows normal systolic wall thickening and contraction of segments. Resting study shows no change in perfusion pattern compared to stress perfusion study. Gating at rest reveals normal systolic wall motion with ejection fraction at 72%. The findings are consistent with no reversible defect suggestive of ischemia. Fixed defect most suggestive of attenuation artifact. NM/NM cardiolite stress test IMPRESSION: 1. Myocardial perfusion imaging study shows likely normal myocardial perfusion. 2. Gated LVEF is 72%. 3. Transient ischemic dilatation not present. EKG revealed negative for ischemia. Electronically signed by: Mendoza De Jesus MD 11/29/2024 05:43 PM EDT
--- OUTSIDE RECORDS SUMMARY | 2024-11-24 07:46 | XMS_ITS | Clinical Summary ---
[facility] Organization [facility] Address [address] [place] [address] Care Team Providers Care Human Services Manager Name Role Phone Unavailable Primary Care Provider [...] Vaccine ( - 2023-2 5 season) 2023 Depression Screening 04/14/2024 Influenza Vaccine (#1) 2024 HIB Vaccines Aged Out No longer [...] 5 Years) and At-Risk Patients (6 to 49 Years) Aged Out No longer eligible b ased on patient's age to complete this topic RSV Immunization Patients Un darren 20 months Aged Out No longer eligible b ased on patient's age to complete this topic Varicella Vaccines Aged Out No longer eligible based on patient's age to complete this topic
--- OUTSIDE RECORDS SUMMARY | 2024-11-24 07:46 | XMS_ITS | Clinical Summary ---
Author Organization [facility] Address [address] [place] [id number] Phone Care Team Providers Care Senior C Software Developer Name Role Phone Unavailable Primary Care Provider Unavailabl e Immunizations Immunization Administration Dates Next Due DTP 05/14/1995, 2,02/11/1991,12/12,1990 HPV, Quadrivalent 08/04/2007,04/22/2007,02/17/20 07 Hep A, ped/adol 02/16/2007,07/21/2006 Hep B, ped/adol 05/14/1995,12/12/1994,11/11/1994 Hib (PRP-T) 02/11/1991,1990,1990 IPV 05/14/1995, 2,1990,10/11 Influenza, injectable, trivalent 02/16/2007,1204/2005,02/14/2005 MMR 11/11/1994,12/13/1991 Meningococcal Conj (Menactra) MCV4P 07/29/2006 Td (adult) (MBL), 2 Lf tetan us toxoid, PF, adsorbed 11/19/2001 Tdap 08/04/2007 Typhoid, oral 07/21/2006 Family History Relation Name Status Comments Brother Alive Brother: Asthma , Allergies, asthma, diabetes, allergies Father Alive Father: Sleep a pnea Mother Alive Mother: Fibromy algia , IBS , Reflex Other Family history of Elevated cholesterol, Family history of Diabetes mellitus, Family history of Asthma, Family history of Sudden /MD under age 55 Social History Tobacco Use Types Packs/Day Years Used Date Smoking Tobacco: Never Assessed Comments Unknown Sex and Gender Information Value Date Recorded Sex Assigned at Not on file Legal Sex Female 4:51 PM EDT Gender Identity Not on file Sexual Orientation Not on file Plan of Treatment Health Maintenance Due Date Last Done Comments Varicella Vaccines (1 of 2 - 13+ 2-dose series) 07/25/2003 DTaP,Tdap,and Td Vaccines (7 - Td or Tdap) 08/03/2017 08/04/2007, 11/19/2001, 05/14/1995, Additional history exists COVID-19 Vaccine ( - 2023-25 season) 2023 Influenza Vaccines (#1) 2024 02/17/20, 03/14/2006, 02/14/2005 HIB Vaccines Aged Out 02/11/1991, 11/14, 1990 No longer eligible based on patient's age to complete this topic MMR Vaccines Completed 11/11/1994, 12/13/1991 Hepatitis B Vaccines Completed 05/14/1995, 12/12/1994, 11/11/1994 IPV Vaccines Completed 05/14/1995, 01/14, 1990, Additional history exists Meningococcal Vaccine Completed 07/29/2006 Hepatitis A Vaccines Completed 02/16/2007, 07/22/19 07 HPV Vaccines Completed 08/04/2007, 12/2007, 02/16/2007 Men B Vaccine Aged Out No longer elig ible based on patient's age to complete this topic Pneumococcal Vaccine Aged Out No long er eligible based on patient's age to complete this topic
--- NOTE | 2024-11-24 07:53 | CA_ITS ---
Acquisition Time: 2024-11-24 07:57:29 Total Exercise Time: 00:08:00 Test Indications: CP, PALPITATIONSRADHANORELOY Medications: SEE H&P Protocol: RUBENS Max HR: 164 BPM 88% of Pred: 186 BPM Max BP: 150/76 mmHG Max Work Load: 10.1 METS Exercise stress test with exercise 8 mins of Rubens Protocol, achieving 88% MPHR, with reports of 1/10 mid chest pressure at baseline that didnot change with exercise, with isolated PVCs, with normotensive response to exercise. Without any EKG changes meeting criteria for ischemia. In recovery, pt's chest pressure remains unchanged. Nuclear images pending. Test reviewed with Dr. Blas. Referred By: Eloy Cash Electronically Signed By: Leroy Martins
== END ==
LOC: HO.CARD 07:44
PROVIDERS: PCP Nurse Practitioner Family; Visit Provider Nurse Practitioner Family
DX: R07.89 Other chest pain (principal); R00.2 Palpitations
CPT/HCPCS: 78452; 93017; A9500

== ENCOUNTER → 2024-11-24 07:53 | Outpatient (BNV) | payer OTHER, SELFPAY | PROVIDERS: PCP Nurse Practitioner Family | DX: R07.9 Chest pain, unspecified (principal) | CPT/HCPCS: 78452; 93016; 93018 ==

== ENCOUNTER 2024-12-01 09:01 | Outpatient (AMB) | payer OTHER, SELFPAY ==
--- NOTE | 2024-12-01 09:09 | A.OFFPC_ITS ---
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: No Allergies No Known Allergies Allergy (Verified 12/01/24 09:35) Medication List - Last Reconciled 12/01/24 by JASE Carranza- No Known Home Meds Tobacco use date assessed: 12/01/24 Dental Screening Dental Screen Date: 12/01/24 Did you have a dental visit in the last 12 months?: Yes Did you have a dental problem in the last 6 months where you did not have access to dental care?: No Was dental information given to patient?: Patient has dentist HPI HPI Comments History of Present Illness Details WILLIE 34 y/o F with PVCs, family hx of DM & pa ncreatic cancer; Surgery: 2014 bone marrow harvest for donation 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 No vision changes. History of Present Illness - The patient is a 34-year-old female pr esenting for CPE and to fu on work done for palpitations and chest pressure. - Palpitations with consistent presence during stress test. - Chest pressure without improvement. - Stress test showed PVCs but otherwise normal findings. - No recent improvement in symptoms. - Labs revealed elevated CRP, indicating possible risk for early cardiac events. LDL > 100. Otherwise labs and workup reassuring. Has not had echo done. - Family history suggests Mature Onset D iabetes of the Young (CRISTINO) in Brother. Health Maintenance - Tetanus immunization: Last dose unknow n, update declined. - Pap smear: Declined by patient, no fam lui history of gynecologic cancers reported. - Skin cancer screening: Discussed, but no concerns from the patient. - Eye exam: Greater than five years ago, no reported changes in vision. - Blood sugar monitoring: Recommended re gular A1c checks, patient advised to follow up in one year for diabetes screening due to family history. Review of Systems - Cardiovascular: Reports palpitations a nd chest pressure. - General: Denies any other health raven rns or changes. Physical Exam General: Well developed, well nourished, in no acute distress. Appears stated age. Head: Normocephalic, atraumatic. Eyes: Pupils are equal, round and reactive to light and accommodation. Conjunctivae are clear. Vision grossly normal. Ears: TMs clear AU, EACS WNL Nose: Patent, without discharge. Neck: Supple, no adenopathy or thyromegaly. Breast: Edu on SBE. Patient is aware of self-breast exams. Lungs: Clear to auscultation bilaterally. No rales, rhonchi or wheeze noted. Good air flow in all salvador. Heart: Regular rate and rhythm. No murmurs, click, rubs or gallops are noted. Pulse is good today. Abdomen: Bowel sounds present in all quadrants. The abdomen is soft, nontender, with no masses or organomegaly noted. No hernias are noted. : Deferred. Reviewed recommendations for routine STONE SAWYER. Pap smear declined by choice. Pulses: Peripheral pulses are equal and palpable bilaterally. Extremities: No clubbing, cyanosis nor edema is noted. No swelling in legs. Neurologic: Gait and station normal. Cranial Nerves 2-12 intact. Motor strength grossly symmetrical and intact. No sensory loss. Balance normal. Skin: No rashes, ulcers, or lesions noted. Turgor is good. Skin color is good. Hair and nails are without abnormalities. Psych: Normal eye contact, affect and mood appropriate, and normal interactions. Patient is alert and appropriate to context. Results see Stress test below; reviewed labs done at ED and 09/2024 Discussion Notes We discussed the current symptoms of palpitations and chest pressure, noting the presence of PVCs on the recent stress test. I explained the elevated CRP could indicate an increased risk for coronary artery disease. Options explored included consulting cardiology for a deeper evaluation, potentially considering a low-dose beta-dorian, metoprolol, for anxiety and palpitations. Diagnostic testing options such as an echocardiogram and possibly a Holter monitor were identified for further assessment. We discussed the potential need for a coronary calcium score and confirmed no immediate coronary ischemia based on current tests. Follow-up with cardiology was recommended, and the option of using metoprolol as needed for anxiety related to symptoms was discussed. The patient consented to the plan and would be awaiting a call from cardiology for scheduling. Patient was given time to ask questions. All questions were answered to their satisfaction. Assessment and Plan 1. Palpitations and Chest Pressure - As-needed metoprolol recommended. - Cardiology referral placed - Echo ordered. 2. Elevated C-Reactive Protein - Cardiovascular risk discussed. - Further cardiology evaluation planned. 3. Familial Hx DM - Annual a1c. Tdap admin today RTO 1 year CPE, labs 1 week before, sooner prn Patient Instructions - Await call from cardiology and follow up. - Use metoprolol as needed for palpitati ons or anxiety, as discussed. - Schedule an echocardiogram and, if willie ired, consider a Holter monitor. - Monitor for changes in symptoms and no tify if worsening occurs. - Return in one year for follow-up diabe willian screening and health review. Consent Patient was informed and verbally consented to the use of an ambient scribe for clinic note documentation during this visit. An additional 30 minutes was spent addressing the problem(s) noted at todays visit. This includes time spent before the visit reviewing the chart, time spent during the visit, and time spent after the visit on documentation reviewing laboratory results, diagnostic imaging, medications, performing a medically necessary evaluation, counseling on diagnoses, care coordination, ordering appropriate tests, ordering appropriate medications, review of tests performed by other providers, reporting test results with the patient, communication with other healthcare providers. [facility] Medical History No pertinent past medical history Surgical History Bone marrow donor Family History (Updated 12/01/24 @ 09:45 by GALILEA Carranza) Brother Asthma Diabetes Mother High cholesterol Paternal Grandfather Diabetes Maternal Grandfather Cardiovascular disease Father Pancreas cancer Social History (Updated 12/01/24 @ 09:45 by GALILEA Carranza) Household Members: Spouse and Children Both parents involved: No Caregiver staying overnight: No Housing: House Are you a primary physician primary care sports medicine to a significant other at home: No Do you presently have visiting nurse or other home services: No 75 years or older and lives alone: No Alcohol intake: current Alcohol intake frequency: a few times a month Patient Tobacco Use Status: Never used Tobacco e-Cigarette/Vaping Use: Never Used Second Hand Smoke Exposure: No service: No Current occupational status: employed 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 1. Little interest or pleasure in doing things: not at all 2. Feeling down, depressed, or hopeless: not at all 3. Trouble falling or staying asleep, or sleeping too much: not at all 4. Feeling tired or having little energy: not at all 5. Poor appetite or overeating: not at all 6. Feeling bad about yourself - or that you are a failure or have let yourself or your family down: not at all 7. Trouble concentrating on things, such as reading the newspaper or watching television: not at all 8. Moving or speaking so slowly that other people could have noticed. Or the opposite - being so fidgety or restless that you have been moving around a lot more than usual: not at all 9. Thoughts that you would be better off or of hurting yourself in some way: not at all Total score: 0 Depression Screening Interpretation: Negative Depression Screening Done: Yes 24060 - PHQ-9 Billing: Yes Source: Developed by Drs. Adolfo Shaw, Elizabeth Torres, Josue Fuentes and colleagues, with an educational joshua from [employer]. Thrive Questionnaire Date Thrive assessed: 12/01/24 I am a: Patient What is your living situation today?: I have a steady place to live Within the past 12 months, did the food you bought not last and you didn't have the money to get more?: Never true Within the past 12 months, did you worry whether your food would run out before you got money to buy more?: Never true Do you have trouble paying for medicines?: No Do you have trouble getting transportation to medical appointments?: No Do you have trouble paying your heating and electricity bill?: No Do you have trouble taking care of your child, family member or friend?: No Do you have trouble with day-to-day activities such as bathing, preparing meals, shopping, managing finances, etc.?: No Are you currently unemployed and looking for a job?: No Are you interested in more education?: No Please select the resources that you would like help with: None Currently or been in a relationship where the following occur: No concerns reported THRIVE Score: 0 LOS-7 AMB Questionnaire LOS-7 Date LOS - 7 assessed: 12/01/24 Feeling nervous, anxious, or on edge: 0 = Not at all Not being able to stop or control worryin = Not at all Worrying too much about different things: 0 = Not at all Trouble relaxin = Not at all Being so restless that it is hard to sit still: 0 = Not at all Becoming easily annoyed or irritable: 0 = Not at all Feeling afraid as if something awful might happen: 0 = Not at all Total LOS-7 score (0-4 normal; 5-9 mild; 10-14 moderate; 15-21 severe): 0 Source: Developed by Drs. Adolfo Shaw, Elizabeth Torres, Josue Fuentes and colleagues, with an educational joshua from [employer]. LOS-7 Assessment Billing LOS-7 Assessment Tool: LOS-7 Assessment 73925 Physical exam (Primary Care) Vital Signs: Last Vital Signs Temp 97.5 F 12/01/24 09:14 Pulse 77 12/01/24 09:14 Resp 13 12/01/24 09:14 BP 138/74 12/01/24 09:14 Pulse Ox 98 12/01/24 09:14 Oxygen Delivery Method Room Air 12/01/24 09:14 BMI result Body Mass Index 28.6 Tobacco/Smoking Status: Tobacco use Status Tobacco use date assessed 12/01/24 12/01/24 09:14 Patient Tobacco Use Status Never used Tobacco 12/01/24 09:45 e-Cigarette/Vaping Use Never Used 12/01/24 09:45 PHQ-9: PHQ-9 Score PHQ-9: Total score 0 12/01/24 09:36 Depression Screening Interpretation: Negative Thrive Assessment: Date of Thrive Assessment Date Thrive assessed 12/01/24 12/01/24 09:10 Currently or been in a relationship where the following occur: No concerns reported Results Reviewed Results Reviewed: Exercise stress test with exercise 8 mins of Rubens Protocol, achieving 88% MPHR, with reports of 1/10 mid chest pressure at baseline that didnot change with exercise, with isolated PVCs, with normotensive response to exercise. Without any EKG changes meeting criteria for ischemia. In recovery, pt's chest pressure remains unchanged. Nuclear images pending. Test reviewed with Dr. Blas. NM/NM cardiolite stress test IMPRESSION: 1. Myocardial perfusion imaging study shows likely normal myocardial perfusion. 2. Gated LVEF is 72%. 3. Transient ischemic dilatation not present. EKG revealed negative for ischemia. Coding Level of Care Code Est Pt Level 4 (80482) Est Pt Prev Care 18-39y(72354) Diagnoses Palpitations R00.2 Chest pressure R07.89 Elevated C-reactive protein (CRP) R79.82 PVC (premature ventricular contraction) I49.3 Need for Tdap vaccination Z23 Family history of diabetes mellitus in brother Z83.3 Encounter for general adult medical examination without abnormal findings Z00.00 Laboratory exam ordered as part of routine general medical examination Z00.00 Family history of pancreatic cancer Z80.0 Additional Codes LOS-7 Assessment Billing - LOS-7 Assessment Tool: LOS-7 Assessment 94869 ([id number]) PHQ-9 - 48469 - PHQ-9 Billing: Yes ([id number]) Assessment & Plan Assessment & Plan (1) Palpitations: Code(s): R00.2 - Palpitations Category: Medical (2) Chest pressure: Code(s): R07.89 - Other chest pain Category: Medical (3) Elevated C-reactive protein (CRP): Onset Date: ~09/30/24 Code(s): R79.82 - Elevated C-reactive protein (CRP) Category: Medical (4) PVC (premature ventricular contraction): Code(s): I49.3 - Ventricular premature depolarization Category: Medical (5) Need for Tdap vaccination: Code(s): Z23 - Encounter for immunization Category: Medical (6) Family history of diabetes mellitus in brother: Comment: CRISTINO. Code(s): Z83.3 - Family history of diabetes mellitus Category: Medical (7) Encounter for general adult medical examination without abnormal findings: Onset Date: ~12/01/24 Code(s): Z00. - Encounter for general adult medical examination without abnormal findings Category: Medical (8) Laboratory exam ordered as part of routine general medical examination: Code(s): Z00.00 - Encounter for general adult medical examination without abnormal findings Category: Medical (9) Family history of pancreatic cancer: Comment: [facility] Code(s): Z80.0 - Family history of malignant neoplasm of digestive organs Category: Medical Plan . Orders: Orders TDaP Immunization Today Z23 - Encounter for immunization Complete Blood Count no Diff 1 Year . - Encounter for general adult medical examination without abnormal findings, Z83.3 - Family history of diabetes mellitus Microalbumin, Random (w Creat) 1 Year . - Encounter for general adult medical examination without abnormal findings, Z83.3 - Family history of diabetes mellitus Vitamin B12 and Folate 1 Year . - Encounter for general adult medical examination without abnormal findings, Z83.3 - Family history of diabetes mellitus Vitamin D 25-OH Total 1 Year . - Encounter for general adult medical examination without abnormal findings, Z83.3 - Family history of diabetes mellitus CA echo transthoracic complete Today I49.3 - Ventricular premature depolarization, R00.2 - Palpitations, R07.89 - Other chest pain, R79.82 - Elevated C-reactive protein (CRP) Comprehensive Met. Panel 1 Year . - Encounter for general adult medical examination without abnormal findings, Z83.3 - Family history of diabetes mellitus Hemoglobin A1c 1 Year . - Encounter for general adult medical examination without abnormal findings, Z83.3 - Family history of diabetes mellitus Lipid Panel 1 Year . - Encounter for general adult medical examination without abnormal findings, Z83.3 - Family history of diabetes mellitus TSH reflex Free T4 1 Year . - Encounter for general adult medical examination without abnormal findings, Z83.3 - Family history of diabetes mellitus Referrals Cardiology Referral I49.3 - Ventricular premature depolarization, R00.2 - Palpitations, R07.89 - Other chest pain, R79.82 - Elevated C-reactive protein (CRP) Medications: New metoprolol tartrate 25 mg PO DAILY PRN 30 tabs 0RF anxiety/palpitations Patient Instructions: Health screenings for women You should visit your health care provider from time to time, even if you are healthy. The purpose of these visits is to: Screen for medical issues Assess your risk for future medical problems Encourage a healthy lifestyle Update vaccinations and other preventive care services Help you get to know your provider in case of an illness Information Even if you feel fine, you should still see your provider for regular checkups. These visits can help you avoid problems in the future. For example, the only way to find out if you have high blood pressure is to have it checked regularly. High blood sugar and high cholesterol levels also may not have any symptoms in the early stages. A simple blood test can check for these conditions. There are specific times when you should see your provider or receive specific health screenings. The [place] Preventive Services Task Force publishes a list of recommended screenings. Below are screening guidelines for women ages 18 to 39. BLOOD PRESSURE SCREENING Your blood pressure should be checked at least once every 3 to 5 years if: Your blood pressure is in the normal range (top number less than 120 mm Hg and bottom number less than 80 mm Hg) You don't have risk factors for high blood pressure Ask your provider if you need your blood pressure checked more often if: The top number is 120 to 129 mm Hg or the bottom number is 70 to 79 mm Hg You have diabetes, heart disease, kidney problems, are overweight, or have certain other health conditions You have a first-degree relative with high blood pressure You are Black You had high blood pressure during a If the top number is 130 mm Hg or greater or the bottom number is 80 mm Hg or greater, this is considered stage 1 hypertension. Schedule an appointment with your provider to learn how you can reduce your blood pressure. Watch for blood pressure screenings in your area. Ask your provider if you can stop in to have your blood pressure checked. BREAST CANCER SCREENING Experts do not agree about the benefits of breast self-exams in finding breast cancer or saving lives. Talk to your provider about what is best for you. A screening mammogram is not recommended for most women under age 40. Your provider may discuss and recommend mammograms, MRI scans, or ultrasounds if you have an increased risk for breast cancer, such as: A mother or sister who had breast cancer at a young age (most often starting screening earlier than the age the close relative was diagnosed) You carry a high-risk genetic marker CERVICAL CANCER SCREENING Cervical cancer screening should start at age 21 years unless your provider advises otherwise. After the first test: Women ages 21 through 29 should have a Pap test every 3 years. Exoprts do not agree on whether HPV testing is recommended for this age group. Women ages 30 through 65 should be screened with either a Pap test every 3 years or the HPV test every 5 years or both tests every 5 years (called cotesting ). Women who have been treated for precancer (cervical dysplasia) should continue to have Pap tests for 20 years after treatment or until age 65, whichever is longer. If you have had your uterus and cervix removed (total hysterectomy), and you have not been diagnosed with cervical cancer or precancer (high grade cervical neoplasia), you do not need cervical cancer screening. CHOLESTEROL SCREENING Cholesterol screening should begin at: Age 45 for women with no known risk factors for coronary heart disease Age 20 for women with known risk factors for coronary heart disease Repeat cholesterol screening should take place: Every 5 years for women with normal cholesterol levels More often if changes occur in lifestyle (including weight gain and diet) More often if you have diabetes, heart disease, kidney problems, or certain other conditions DIABETES SCREENING You should be screened for diabetes starting at age 35 and then repeated every 3 years if you have no risk factors for diabetes. Screening may need to start earlier and be repeated more often if you have other risk factors for diabetes, such as: You have a first degree relative with diabetes. You are overweight or have obesity. You have high blood pressure, prediabetes, or a history of heart disease. Screening for diabetes should be done if you are planning to become and you are overweight and have other risk factors such as high blood pressure. DENTAL EXAM Go to the dentist once or twice every year for an exam and cleaning. Your dentist will evaluate if you need more frequent visits. EYE EXAM Have an eye exam every 5 to 10 years before age 40. If you have vision problems, have an eye exam every 2 years or more often if recommended by your provider. You should have an eye exam that includes an examination of your retina (back of your eye) at least every year if you have diabetes. IMMUNIZATIONS Commonly needed vaccines include: Flu shot: get one every year. COVID-19 vaccine: ask your provider what is best for you. Tetanus-diphtheria and acellular pertussis (Tdap) vaccine: have one at or after age 19 as one of your tetanus-diphtheria vaccines if you did not receive it as an adolescent. Tetanus-diphtheria: have a booster (or Tdap) every 10 years. Varicella vaccine: receive 2 doses if you never had chickenpox or the varicella vaccine. Hepatitis B vaccine: receive 2, 3, or 4 doses, depending on your exact circumstances. Measles, mumps, and rubella (MMR) vaccine: receive 1 to 2 doses if you are not already immune to MMR. Your provider can tell you if you are immune. Ask your provider about the human papillomavirus (HPV) vaccine if: You have not received the HPV vaccine in the past You have not completed the full vaccine series (you should catch up on this shot) Ask your provider if you should receive other immunizations if you have certain health problems that increase your risk for some diseases such as pneumonia. INFECTIOUS DISEASE SCREENING Women who are sexually active should be screened for chlamydia and gonorrhea up until age 25. Women 25 years and older should be screened for chlamydia and gonorrhea if at high risk. Screening for hepatitis C: All adults ages 18 to 79 should get a one-time test for hepatitis C. people should be screened at every . Screening for human immunodeficiency virus (HIV): All people ages 15 to 65 should get a one-time test for HIV. Depending on your lifestyle and medical history, you may also need to be screened for infections such as syphilis and HIV, as well as other infections. PHYSICAL EXAM All adults should visit their provider from time to time, even if they are healthy. The purpose of these visits is to: Screen for disease Assess your risk of future medical problems Encourage a healthy lifestyle Update your vaccinations and other preventive care services Maintain a relationship with a provider in case of an illness Your height, weight, and BMI should be checked at every exam. During your exam, your provider may ask you about: Depression and anxiety Diet and exercise Alcohol and tobacco use Safety issues, such as using seat belts, smoke detectors, and intimate partner violence Your medicines and risk for interactions SKIN SELF-EXAM Your provider may check your skin for signs of skin cancer, especially if you're at high risk, such as if you: Have had skin cancer before Have close relatives with skin cancer Have a weakened immune system OTHER SCREENING Talk with your provider about colon cancer screening if you have a strong family history of colon cancer or polyps, or if you have had inflammatory bowel disease or polyps yourself. Routine bone density screening of women under 40 is not recommended.
[2024-12-01 09:14] VITALS: BP 138/74; PULSE 77; RESP 13; TEMP 36.4; O2SAT 98; BMI 28.6
--- OUTSIDE RECORDS SUMMARY | 2024-12-01 09:44 | XMS_ITS | Clinical Summary ---
Author Organization [facility] ity Address [address] [place] [address] Care Team Providers Care Balance Staff Inspector Name Role Phone Unavailable Primary Care Provider [...]
--- OUTSIDE RECORDS SUMMARY | 2024-12-01 09:45 | XMS_ITS | Clinical Summary ---
Author Organization [facility] Address [address] [place] [phone] Phone Care Team Providers Care Cryptography Teacher Name Role Phone Unavailable Primary Care Provider [...] history of Asthma, Family history of Sudden /CT under age 55 Social History Tobacco Use [...]
== END 2024-12-01 09:58 | disposition home or self-care (01) ==
LOC: HO.HMCFM 09:02
PROVIDERS: PCP Nurse Practitioner Family; Visit Provider Nurse Practitioner Family
DX: Z00.00 Encounter for general adult medical examination without abnormal findings (principal); R00.2 Palpitations; R07.89 Other chest pain; R79.82 Elevated C-reactive protein (CRP); I49.3 Ventricular premature depolarization; Z23 Encounter for immunization; Z83.3 Family history of diabetes mellitus; Z80.0 Family history of malignant neoplasm of digestive organs

== ENCOUNTER → 2024-12-01 09:01 | Outpatient (BNVA) | payer OTHER, SELFPAY | PROVIDERS: PCP Nurse Practitioner Family; Visit Provider Nurse Practitioner Family | DX: Z00.00 Encounter for general adult medical examination without abnormal findings (principal); R00.2 Palpitations; R07.89 Other chest pain; R79.82 Elevated C-reactive protein (CRP); I49.3 Ventricular premature depolarization; Z23 Encounter for immunization; Z83.3 Family history of diabetes mellitus; Z80.0 Family history of malignant neoplasm of digestive organs | CPT/HCPCS: 90471; 90715; 96127 ==

== ENCOUNTER → 2025-04-11 07:47 | Outpatient (REF) | payer OTHER, SELFPAY ==
--- NOTE | 2025-04-11 07:49 | CA_ITS ---
Transthoracic Echocardiogram Patient (Last, First, Middle): Rohan Linn A Gender: F Date of : 1990 Age: 34 Procedure Date: 04/11/2025 Procedure Type: Transthoracic Echocardiogram Location: OP Height: 167. cm Weight: 77.11 kg BSA: 1.86 m2 Heart Rate: 83 bpm BP: 120 / 80 mmHg Retail Equipment Associate: MARTI Referring MD: Rhonda Cash [facility] Symptoms: R00.2 - Palpitations Study Quality: Adequate ECG Rhythm: Sinus Conclusions: - The left ventricular systolic function is normal. The calculated ejection fraction is 65% by biplane method. - No obvious valvular pathology seen on this study. Findings Left Ventricle Normal left ventricular cavity size. There is normal left ventricular wall thickness. The left ventricular systolic function is normal. The calculated ejection fraction is 65% by biplane method. There is no evidence of regional wall motion abnormalities. Diastolic function is normal for age. Right Ventricle Normal right ventricular cavity size and systolic function. Atria Both atria are normal in size. Aortic Valve The aortic valve was not well visualized. There is no aortic valve stenosis. There is no aortic valve regurgitation. Mitral Valve The mitral valve appears normal. There is no mitral valve regurgitation. There is no mitral valve stenosis. Pulmonic Valve The pulmonic valve is likely normal. Tricuspid Valve Normal tricuspid valve structure. There is trace tricuspid valve regurgitation. There is no evidence of pulmonary hypertension. Great Vessels The asc aorta is normal in size. Venous The inferior vena cava is normal in size and collapses greater than 50% with inspiration. Pericardium/Pleural There is no evidence of pericardial effusion. Prior Study Comparison No prior study available for comparison. Recommendations, Care & Conclusions No obvious valvular pathology seen on this study. Measurements 2D Linear Measurements IVSd: 0.86 0.6-0.9/0.6-1.0 cm LVIDd: 4.51 3.9-5.3/4.2-5.9 cm LVIDd Index: 2.42 2.4-3.2/2.2-3.1 cm/m2 LVIDs: 2.81 2.0-3.6 cm LVPWd: 0.86 0.7-1.1 cm LA Diam: 2.50 2.7-3.8/3.0-4.0 cm LAIDs Index: 1.34 1.5-2.3 cm/m2 LV Mass: 155.11 67-162/88-224 g LV Mass Index: 83.39 43-95/49-115 g/m2 LVOT Diam: 2.00 3.0+(-)1.3 cm 2D Systolic Function EF 4C: 64.80 >55% EF 2C: 63.40 >55% EF BiP: 64.90 >55% Mitral Valve MV Pk E: 0.74 MV PK A: 0.51 MV Decel Time: 173.00 E/A: 1.50 E'Lateral: 14.60 E'Medial: 10.20 E/E' Med: 7.30 E/E' Lat: 5.10 PHT: 51.00 MVA PHT: 4.31 Decel Blair: 4.28 Aortic Valve AoV Pk Van: 1.44 AoV Mn Van: 1.04 AoV VTI: 0.27 AoV Pk Grad: 8.00 Aov Mn Grad: 5.00 CARLTON Cont.VTI: 2.89 LVOT LVOT Pk Van: 1.32 LVOT Mn Van: 0.90 LVOT VTI: 0.25 LVOT Pk Grad: 7.00 LVOT Mn Grad: 4.00 LVOT Diam: 2.00 LVOT Area: 3.14 Diastolic Function MV Pk E: 0.74 MV Pk A: 0.51 E/A: 1.50 E'Medial: 10.20 E/E' Med: 7.30 E' Laterial: 14.60 E/E' Lat: 5.10 Right Ventricle TAPSE (mm): 29.20 TVS' Van: 12.90 Tricuspid Valve RA Press: 3.00 Great Vessels Aorta Sinus of Valsalva: 3.20 2.0-3.5 cm Ao Asc: 3.30 2.1-3.4 cm Ao Arch: 2.30 Pulmonary Veins Pulm Vein S/D 1.20 Pulmonary Valve PV Pk Van: 1.21 Peak PV Grad: 6.00 Updated in Other Vendor System with Status of Final Noe Larsen MD electronically signed on 04/11/2025 12:26:59 PM with status of Final
--- OUTSIDE RECORDS SUMMARY | 2025-04-11 07:51 | XMS_ITS | Encounter Summary ---
Author Organization [facility] Address [address] [place] [address] Phone Care Team Providers Care Launderer Hand Name Role Phone Rosana Garcia MD Primary Care Provider [phone] Encounter Details Date Type Department Care Team (Late st Contact Info) Description 11/28/2016 Conversion Encounter [facility] [place] [address] [place] [address] Social History Tobacco Use Types Packs/Day Years Used Date Smoking Tobacco: Never Assessed Comments Unknown Sex and Gender Information Value Date Recorded Sex Assigned at Not on file Legal Sex Female 4:51 PM EDT Gender Identity Not on file Sexual Orientation Not on file documented as of this encounter Plan of Treatment Not on file documented as of this encounter Visit Diagnoses Not on filedocumented in this encounter Care Teams Launderer Hand Relationship Specialty Start Date End Date Rosana Garcia MD [address] [place] [address] PCP - General 11/22/16 06/26/22 documented as of this encounter
--- OUTSIDE RECORDS SUMMARY | 2025-04-11 07:51 | XMS_ITS | Clinical Summary ---
Author Organization [facility] ity Address [address] [place] [address] Care Team Providers Care Cena Name Role Phone Unavailable Primary Care Provider [...] Cervical Cancer Screening: P ap Smear 07/25/2011 HPV Vaccines (1 - 3-dose SCD M series) 2017 Depression Screening 04/14/2024 COVID-19 Vaccine ( - 2024-2 6 season) 2024 Influenza Vaccine (#1) 2024 RSV Immunization Adult Patie nts (1 - 1-dose 75+ series) 2065 HIB Vaccines Aged Out No longer eligi [...]
--- OUTSIDE RECORDS SUMMARY | 2025-04-11 07:51 | XMS_ITS | Clinical Summary ---
Author Organization [facility] Address [address] [place] [phone] Phone Care Team Providers Care Design Tech Name Role Phone Unavailable Primary Care Provider [...] history of Asthma, Family history of Sudden /AL under age 55 Social History Tobacco Use [...] 08/03/2017 08/04/2007, 11/19/2001, 05/14/1995, Additional history exists Influenza Vaccines (#1) 2024 02/17/20 07, 03/14/2006, 02/14/2005 COVID-19 Vaccine (2024- season) 2024 HIB Vaccines Aged Out 02/11/1991, 11/14, 1990 [...]
== END ==
LOC: HO.CARD 07:47
PROVIDERS: PCP Nurse Practitioner Family; Visit Provider Nurse Practitioner Family
DX: I49.3 Ventricular premature depolarization (principal); R00.2 Palpitations; R07.89 Other chest pain; R79.82 Elevated C-reactive protein (CRP)
CPT/HCPCS: 93005; 93306

== ENCOUNTER 2025-04-11 12:46 | Outpatient (AMB) | payer OTHER, SELFPAY ==
[2025-04-11 12:53] VITALS: BP 140/80; PULSE 94; BMI 27.8
--- NOTE | 2025-04-11 12:53 | MHC.OFFVIS ---
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 She says that her work is busy but not significantly stressful. The symptoms started about a year ago she started noticing this chest pressure which is random. Patient has these symptoms that happen at rest without exertion. Symptoms can last for couple of minutes to few hours. She has a result underwent a stress test recently which at moderate workload was negative for ischemia. She was noted to have isolated PVCs. She subsequently had a echocardiogram this morning which shows normal structure of the heart. She had also describes symptoms of skipped heartbeat again without any clear pattern. This happens randomly. This could happen at rest. Symptoms are not present on every day. She is not very bothered by the symptoms. She has no associated symptoms of lightheadedness or syncope. She denies any heart failure symptoms. She says her maternal grandfather had heart failure diagnose in his 30s to 40s but lived up to age 80. No other family history of premature coronary artery disease or sudden cardiac that. [facility] Medical History No pertinent past medical history Surgical History Bone marrow donor Family History Brother Asthma Diabetes Mother High cholesterol Paternal Grandfather Diabetes Maternal Grandfather Cardiovascular disease Father Pancreas cancer Social History Household Members: Spouse and Children Both parents involved: No Caregiver staying overnight: No Housing: House Are you a primary health care facility administrator to a significant other at home: No Do you presently have visiting nurse or other home services: No 75 years or older and lives alone: No Alcohol intake: current Alcohol intake frequency: a few times a month Patient Tobacco Use Status: Never used Tobacco e-Cigarette/Vaping Use: Never Used Second Hand Smoke Exposure: No service: No Current occupational status: employed 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 Cognitive needs: No Hearing needs: No Vision needs: Yes (wear glasses) Review of Systems Const Denies fatigue, Denies fever(s), Denies frequent falls, Denies weakness, Denies weight gain and Denies weight loss Eyes Denies loss of vision ENT Reports dizziness Card Reports chest pain, Denies leg edema, Denies lightheadedness, Reports palpitations, Denies dyspnea, Denies dyspnea on exertion, Denies orthopnea and Denies other (loss of consciousness) Resp Denies cough, Denies dyspnea, Denies dyspnea on exertion and Denies wheezing GI Denies hematochezia and Denies change in stool character Denies urinary frequency and Denies dysuria Musc Denies abnormal gait, Denies muscle weakness, Denies numbness, Denies radiating pain into limb and Denies tingling Skin/Breast Denies nail changes and Denies rash Neuro Denies abnormal gait, Reports dizziness, Denies frequent falls, Denies loss of vision, Denies memory loss, Denies numbness, Denies tingling and Denies weakness Psych Denies depression and Denies memory loss Endo Denies fatigue and Reports palpitations Shiv/Lymph Reports easy bruising and Reports other (anemia) Aller/Immun Denies wheezing Physical Exam Vital Signs: Last Vital Signs Pulse 94 04/11/25 12:53 BP 140/80 H 04/11/25 12:53 BMI result Body Mass Index 27.8 Const General: cooperative, comfortable, no acute distress, alert, awake and Physically active Nutritional Appearance: average body habitus Orientation/consciousness: patient oriented x3 Limitations: no limitations HEENT Head: Yes normocephalic and Yes atraumatic Neck Neck: Yes trachea midline, Yes supple and Yes no JVD Resp Effort & Inspection: normal respiratory effort Auscultation: clear to auscultation bilaterally Cardio Jugular venous distension: no JVD Palpation: normal PMI Rate: regular rate Rhythm: regular rhythm Heart sounds: S1 normal heart sound present, S2 normal heart sound present, no click, no gallops, no murmurs and no rubs GI Auscultation: normal bowel sounds Skin General skin exam: no rashes or lesions noted Neuro General: patient oriented x3 and no focal motor deficits Extrem General: Yes no clubbing, cyanosis or edema Psych Appearance: grossly normal Office Procedures EKG Details: EKGs shows normal sinus rhythm with nonspecific ST-T changes 78044-[id number], Complete Assessment & Plan Assessment & Plan (1) Chest pain: Code(s): R07.9 - Chest pain, unspecified Plan: Patient with intermittent episodes of chest pressure in his retrosternal/precordial area. These are not associated with exertional under stressful situations. Subsequently she had a stress test recently which is within normal limits. Likelihood of underlying coronary artery disease is extremely low. She is on top normal structure of the heart by echocardiogram. Discussed with her that most likely this chest pain syndrome in his not cardiac in origin an alternative etiology should be evaluated for. She felt quite reassured by this. (2) Palpitations: Code(s): R00.2 - Palpitations Category: Medical Plan: Symptoms of palpitation with the description seems like most likely related to isolated PVCs. This was demonstrated during treadmill stress test. In his normal structure of the heart as a background isolated PVCs if they are infrequent carry benign prognosis and this was discussed with her. I would like to perform a Holter monitor to assess for frequency of PVCs which could guide therapy. We discussed that if she remains highly symptomatic she could still be treated with beta-dorian therapy to reduce her cardiac excitability although I would withhold therapy at this point in time as the symptoms tone appear to restrict her lifestyle. I have advised sudden factors that may increase her likelihood of having PVCs including stressful situations as well as stimulants. We discussed about avoiding stimulants and participate in his stress mitigation strategies. She understands and agrees. Will follow up in the clinic in 1 year's time, sooner PRN. Thank you for allowing me to partake in her care Orders: Orders ECG 7 day holter monitor Today I49.3 - Ventricular premature depolarization Coding Level of Care Code New Pt Level 4 (29490) Diagnoses Chest pain R07.9 Palpitations R00.2 CPT Codes EKG - CPT: 29256-[id number], Complete ([id number])
== END 2025-04-11 13:18 | disposition home or self-care (01) ==
LOC: HO.HCS 12:46
PROVIDERS: PCP Nurse Practitioner Family; Visit Provider Internal Medicine Cardiovascular Disease
DX: R07.9 Chest pain, unspecified (principal); R00.2 Palpitations
CPT/HCPCS: 93010; 93306; 99214